=== PATIENT | female | born 1985 | race Caucasian/White ===

== ENCOUNTER 2016-04-10 07:39 | Inpatient (IN) | payer OTHER ==
[2016-04-10] MEDS ORDERED: XYLOCAINE 2% INFILTRATI ONE (08:40)
[2016-04-10] MEDS ORDERED: ZOFRAN IV PRN ×2 (08:40→18:21)
[2016-04-10] MEDS ORDERED: MINERAL OIL PO PRN (08:40)
[2016-04-10] MEDS ORDERED: ePHEDrine SULFATE IV PRN ×2 (08:40→14:29)
[2016-04-10] MEDS ORDERED: SUBLIMAZE IV PRN (08:40)
[2016-04-10] MEDS ORDERED: NARCAN 0.4 MG/1 ML IV PRN (08:40)
[2016-04-10] MEDS ORDERED: BRETHINE IVP PRN (08:40)
[2016-04-10] MEDS ORDERED: STADOL IV PRN (08:40)
[2016-04-10] MEDS ORDERED: BRETHINE SUB-Q PRN (08:40)
[2016-04-10] MEDS ORDERED: PITOCin/NS 30 UNIT/500ML 500 ML IV SCH (09:00)
[2016-04-10] MEDS ORDERED: PITOCin/NS 20 UNIT/1000ML DRIP 1,000 ML IV SCH ×2 (09:00→18:21)
--- NOTE | 2016-04-10 09:04 | History and Physical Report ---
History of Present Illness Date of examination: 04/10/16 Date of admission: 04/10/16 07:42 Chief complaint: Spontaneous rupture of membranes Past History Past Medical History: no pertinent history Past Surgical History: no surgical history Family/Genetic History: none Social history: no significant social history - Obstetrical History Expected Date of Delivery: 04/23/16 Actual Gestation: 38 Week(s) 1 Day(s) : 4 Number of Living Children: 3 Medications and Allergies Allergies Allergy/AdvReac Type Severity Reaction Status Date / Time No Known Allergies Allergy Verified 01/29/15 10:52 Home Medications Medication Instructions Recorded Confirmed Last Taken Type HYDROcodone/APAP 5-325 [[place] 1 each PO Q6HR PRN #20 tablet 01/30/15 04/10/16 Unknown Rx 5/325] Ibuprofen [Motrin] 800 mg PO Q8HR PRN #60 tablet 01/30/15 04/10/16 Unknown Rx Tablet 1 tab PO DAILY 04/10/16 04/10/16 04/09/16 21:00 History 1 Active Meds: Active Medications Butorphanol Tartrate (Stadol) 2 mg IV Q2H PRN PRN Reason: Pain , Severe (7-10) Ephedrine Sulfate (Ephedrine Sulfate) 10 mg IV Q2M PRN PRN Reason: Hypotension Stop: 04/10/16 08:45 Fentanyl (Sublimaze) 100 mcg IV Q2H PRN PRN Reason: Labor Pain Lactated Ringer's (Lactated Ringers) 1,000 mls @ 125 mls/hr IV DIRECT LEDY Oxytocin/Sodium Chloride (Pitocin/Ns 20 Unit/1000ml Drip) 1,000 mls @ 125 mls/ hr IV DIRECT LEDY Oxytocin/Sodium Chloride (Pitocin/Ns 30 Unit/500ml) 500 mls @ 4 mls/hr IV TITR LEDY PRN Reason: Protocol Oxytocin/Sodium Chloride (Pitocin/Ns 30 Unit/500ml) 500 mls @ 1 mls/hr IV TITR LEDY; 1 MILLIUNITS/MIN PRN Reason: Protocol Lidocaine (Xylocaine 2%) 20 ml INFILTRATI ONCE ONE Stop: 04/10/16 08:41 Mineral Oil (Mineral Oil) 30 ml PO QHS PRN PRN Reason: Constipation Naloxone HCl (Narcan 0.4 Mg/1 Ml) 0.1 mg IV Q2MIN PRN PRN Reason: Res Rate </= 8 or 02 SAT < 92% Ondansetron HCl (Zofran) 4 mg IV Q8H PRN PRN Reason: Nausea And Vomiting Terbutaline Sulfate (Brethine) 0.25 mg SUB-Q ONCE PRN PRN Reason: Hyperstimulation/Hypertonicity Stop: 04/10/16 08:41 Terbutaline Sulfate (Brethine) 0.25 mg IVP ONCE PRN PRN Reason: Hyperstimulation/Hypertonicity Stop: 04/10/16 08:41 Review of Systems All systems: negative Gastrointestinal: abdominal pain Genitourinary: leakage of fluid - Vital Signs Vital signs: Vital Signs Pulse Pulse Ox 87 98 04/10/16 08:47 04/10/16 08:47 Temp Pulse Resp BP Pulse Ox 97.5 F L 94 H 18 101/67 97 04/10/16 08:48 04/10/16 08:57 04/10/16 08:48 04/10/16 08:48 04/10/16 08:57 - Physical Exam Breasts: Cardiovascular: Regular rate, Normal S1, Normal S2 Abdomen: Positive: normal appearance, soft, normal bowel sounds. Negative: distention, tenderness Vulva: both: normal Vagina: Positive: normal moisture. Negative: discharge Cervix: Negative: lesion, discharge Uterus: Positive: normal size, normal contour Adnexa: both: normal Anus/Rectum: Positive: normal perianal skin, heme negative. Negative: rectal mass, hemorrhoids Extremities: Deep Tendon Reflex Grade: Normal +2 - Obstetrical FHR: category 1 Uterine Contraction Monitor Mode: External Cervical Dilatation: 3 Cervical Effacement Percentage: 50 station: -2 Uterine Contraction Frequency (min): q 8min Uterine Contraction Pattern: Irregular Uterine Tone Measurement Phase: Resting Uterine Contraction Intensity: Mild Results Result Diagrams: 04/10/16 07:05 All other labs normal. Assessment and Plan iup at term, SROM, latent labor Plan- IUPC placed. start pitocin, anticipate
[2016-04-10 09:17] LABS: Hematocrit 35.2 % (30.3-42.9); Hemoglobin 11.7 gm/dl (10.1-14.3); Mean Corpuscular HGB Conc 33 % (30-34); Mean Corpuscular Hemoglobin 27 pg (28-32); Mean Corpuscular Volume 80 fl (79-97); Platelet Count 216 K/mm3 (140-440); Red Cell Distribution Width 13.6 % (13.2-15.2); White Blood Count 10.5 K/mm3 (4.5-11.0)
[2016-04-10] MEDS: LACTATED RINGERS 1,000 ML IV SCH ×2 (11:12→14:11)
[2016-04-10] MEDS: PITOCin/NS 30 UNIT/500ML 500 ML IV SCH ×6 (11:16→14:33)
[2016-04-10] MEDS ORDERED: NARCAN 2 MG/2 ML IV PRN (14:29)
--- NOTE | 2016-04-10 14:29 | Anesthesia Consultation ---
Anesthesia Consult and Med Hx Date of service: 04/10/16 - Airway Anesthetic Teeth Evaluation: Good ROM Head & Neck: Adequate Mental/Hyoid Distance: Adequate Mallampati Class: Class II Intubation Access Assessment: Probably Good - Pulmonary Exam CTA: Yes - Cardiac Exam Cardiac Exam: RRR - Pre-Operative Health Status ASA Pre-Surgery Classification: ASA2 Proposed Anesthetic Plan: Epidural - Pulmonary Hx Asthma: No COPD: No Hx Pneumonia: No - Cardiovascular System Hx Hypertension: No - Central Nervous System Hx Seizures: No Hx Psychiatric Problems: No - Endocrine Hx Renal Disease: No Hx End Stage Renal Disease: No Hx Hypothyroidism: No Hx Hyperthyroidism: No - Hematic Hx Anemia: No Hx Sickle Cell Disease: No - Other Systems Hx Alcohol Use: No
[2016-04-10] MEDS ORDERED: fentaNYL-BUPIV 2 MCG/ML-0.125% 100 ML EPIDURAL SCH (15:00)
--- NOTE | 2016-04-10 15:57 | Procedure Note ---
OB Delivery Note - Delivery Date of Delivery: 04/10/16 Surgeon: MARQUEZ HUFF Estimated blood loss: 200cc - Vaginal Delivery presentation: vertex Delivery position: OA Intrapartum events: none Delivery induction: none Delivery augmentation: pitocin Delivery monitor: none Route of delivery: Delivery placenta: spontaneous Delivery cord: 3 umbilical vessels Episiotomy: none Delivery laceration: none Anesthesia: epidural - A at 1 minute: 9 at 5 minutes: 9 Infant Gender: Male (wt 7-13, a)
[2016-04-10] MEDS ORDERED: MILK OF MAGNESIA PO PRN (18:21)
[2016-04-10] MEDS ORDERED: BENADRYL PO PRN (18:21)
[2016-04-10] MEDS ORDERED: TYLENOL PO PRN (18:21)
[2016-04-10] MEDS ORDERED: LANSINOH TP PRN (18:21)
[2016-04-10] MEDS ORDERED: PERCOCET 5/325 PO PRN (18:21)
[2016-04-10] MEDS ORDERED: DERMOPLAST TP PRN (18:21)
[2016-04-10] MEDS ORDERED: SODIUM CHLORIDE FLUSH SYRINGE 10 ML IV NR (18:21)
[2016-04-10] MEDS ORDERED: PHENERGAN PO PRN (18:21)
[2016-04-10] MEDS ORDERED: DULCOLAX PR PRN (18:21)
[2016-04-10] MEDS ORDERED: PHENERGAN PR PRN (18:21)
[2016-04-10] MEDS ORDERED: TUCKS PAD TP PRN (18:21)
[2016-04-10] MEDS: MOTRIN PO SCH (23:25)
--- NOTE | 2016-04-11 03:05 | Progress Note ---
Assessment and Plan ppd 1 s/p . paln d/c home this pm if stable Subjective - Subjective Date of service: 04/11/16 Principal diagnosis: ppd 1 s/p Interval history: routine pp care Patient reports: appetite normal, voiding normally, pain well controlled : doing well Objective - Vital Signs Latest vital signs: Vital Signs Temp Pulse Pulse Resp BP BP Pulse Ox 04/11/16 00:40 98.2 F 84 18 85/50 04/10/16 20:30 98.8 F 83 18 90/51 04/10/16 18:12 98.8 F 68 20 94/51 04/10/16 17:01 75 104/52 04/10/16 16:46 82 98/56 04/10/16 16:32 78 79 18 104/56 104/56 97 04/10/16 16:29 79 97 04/10/16 16:24 79 97 04/10/16 16:19 74 97 04/10/16 16:16 71 101/59 04/10/16 16:15 71 18 101/59 97 04/10/16 16:14 77 98 04/10/16 16:09 76 97 04/10/16 16:04 75 97 04/10/16 15:59 71 97 04/10/16 15:54 78 97 04/10/16 15:49 80 97 04/10/16 15:46 76 100/59 04/10/16 15:44 75 98 04/10/16 15:40 97.8 F 71 73 18 105/61 105/61 98 04/10/16 15:39 78 98 04/10/16 15:18 93 H 111/67 04/10/16 15:17 90 98 04/10/16 15:12 88 96 04/10/16 15:07 94 H 97 04/10/16 15:06 88 93 04/10/16 15:02 80 99 04/10/16 14:58 75 104/53 04/10/16 14:57 77 97 04/10/16 14:52 89 91/55 97 04/10/16 14:47 81 98 04/10/16 14:46 82 105/51 04/10/16 14:44 72 91/51 04/10/16 14:42 80 86/49 99 04/10/16 14:40 74 91/54 04/10/16 14:38 76 87/51 04/10/16 14:37 81 97 04/10/16 14:36 77 104/56 04/10/16 14:34 77 90/53 04/10/16 14:32 84 85/51 97 04/10/16 14:30 78 105/57 04/10/16 14:28 79 83/49 04/10/16 14:27 84 97 04/10/16 14:26 78 83/48 04/10/16 14:22 87 111/58 98 04/10/16 14:20 86 94/54 04/10/16 14:17 100 H 101/54 99 04/10/16 14:16 98.5 F 88 18 101/54 99 04/10/16 14:12 78 98 04/10/16 14:07 94 H 97 04/10/16 14:02 94 H 97 04/10/16 13:57 80 98 04/10/16 13:52 90 97 04/10/16 13:47 82 96 04/10/16 13:44 78 94 04/10/16 13:42 102 H 96 04/10/16 13:37 82 95 04/10/16 13:36 78 94 04/10/16 13:35 77 121/58 04/10/16 13:32 95 H 98 04/10/16 13:31 18 04/10/16 13:27 89 98 04/10/16 13:22 80 98 04/10/16 13:17 93 H 98 04/10/16 13:12 92 H 98 04/10/16 13:07 91 H 96 04/10/16 13:03 89 118/56 04/10/16 13:02 91 H 98 04/10/16 12:57 89 98 04/10/16 12:52 91 H 98 04/10/16 12:47 98 H 97 04/10/16 12:42 89 97 04/10/16 12:37 89 96 04/10/16 12:32 85 97 04/10/16 12:27 98.5 F 88 82 18 103/71 98 04/10/16 12:26 93 H 103/71 04/10/16 12:22 93 H 98 04/10/16 12:17 91 H 96 04/10/16 12:12 100 H 98 04/10/16 12:07 96 H 98 04/10/16 12:04 89 94 04/10/16 12:02 95 H 97 04/10/16 11:57 101 H 98 04/10/16 11:52 105 H 98 04/10/16 11:49 98 H 109/71 04/10/16 11:47 92 H 98 04/10/16 11:42 95 H 98 04/10/16 11:37 97 H 97 04/10/16 11:32 98 H 98 04/10/16 11:27 95 H 97 04/10/16 11:22 99 H 97 04/10/16 11:18 93 H 100/59 04/10/16 11:17 88 99 04/10/16 09:57 90 96 04/10/16 09:52 88 96 04/10/16 09:47 90 96 04/10/16 09:42 97 H 96 04/10/16 09:37 86 96 04/10/16 09:32 83 96 04/10/16 09:27 84 98 04/10/16 09:22 89 97 04/10/16 09:17 83 98 04/10/16 09:12 83 97 04/10/16 09:07 85 97 04/10/16 09:02 87 98 04/10/16 08:57 94 H 97 04/10/16 08:52 89 98 04/10/16 08:48 97.5 F L 86 88 18 101/67 101/67 98 04/10/16 08:47 87 98 Intake and Output 04/10/16 04/10/16 04/11/16 14:59 22:59 06:59 Intake Total 1000 2070 720 Output Total 850 350 Balance 1000 1220 370 Intake: IV 1000 1950 600 Lactated Ringers 1,000 ml 1000 1050 @ 125 mls/hr IV DIRECT LEDY Rx#:[id number] PITOCin/NS 20 UNIT/1000ML 400 600 DRIP 1,000 ML @ 125 mls/ hr IV DIRECT LEDY Rx#: [id number] PITOCin/NS 30 UNIT/500ML 500 500 ML @ 1 MILLIUNITS/MIN 1 mls/hr IV TITR LEDY Rx# :[id number] Oral 120 120 Output: Urine 850 350 Indwelling Catheter 700 Void 150 350 Other: Total, Intake Amount 120 120 Total, Output Amount 150 350 Weight 74.389 kg Estimated Blood Loss 200 Patient Weight 04/11/16 06:59 Weight 74.389 kg - Exam Breasts: Present: deferred Cardiovascular: Present: Regular rate, Normal S1, Normal S2 Lungs: Present: Clear to auscultation Abdomen: Present: normal appearance, soft Vulva: both: normal Uterus: Present: normal, firm Extremities: Present: normal Deep Tendon Reflex Grade: Normal +2 Incision: Present: normal, dry, intact - Labs Labs: Abnormal lab results 04/10/16 Range/Units 07:05 MCH 27 L (28-32) pg
--- NOTE | 2016-04-11 03:08 | Discharge Summary ---
Providers - Providers Date of Admission: 04/10/16 07:42 Date of discharge: 04/11/16 Attending physician: MARQUEZ HUFF Primary care physician: MARQUEZ HUFF Hospitalization Reason for admission: active labor, rupture of membranes Delivery: Procedure details: s/p Episiotomy: none Laceration: none Other procedures: none complications: none Discharge diagnosis: IUP at term delivered baby: male Hospital course: rouitne pp course Condition at discharge: Good Disposition: DISCHARGED TO HOME OR SELFCARE - Discharge Diagnoses (1) (normal spontaneous vaginal delivery) Status: Acute Plan - Discharge Medications Prescriptions: Ferrous Sulfate [Feosol 325 MG tab] 325 mg PO BID #60 tablet Ibuprofen [Motrin 800 MG tab] 800 mg PO Q8HR PRN #30 tablet PRN Reason: Pain oxyCODONE /ACETAMINOPHEN [Percocet 5/325] 1 tab PO Q6HR PRN #30 tablet PRN Reason: Pain - Provider Discharge Summary Activity: routine, no sex for 6 weeks, no heavy lifting 4 weeks, no strenuous exercise Diet: routine Additional instructions: [] Smoking cessation referral if applicable(refer to patient education folder for contact #) [] Refer to [facility]'s [facility] Booklet Call your doctor immediately for: * Fever > 100.5 * Heavy vaginal bleeding ( >1 pad per hour) * Severe persistent headache * Shortness of breath * Reddened, hot, painful area to leg or breast * Drainage or odor from incision. * Keep incision clean and dry at all times and follow doctor's instructions regarding bathing/showering - Follow up plan Follow up: MARQUEZ HUFF MD [Primary Care Provider] - 6 Weeks
[2016-04-11] MEDS: MOTRIN PO SCH ×2 (05:03→12:40)
[2016-04-11] MEDS ORDERED: BOOSTRIX IM ONE (06:00)
[2016-04-11 06:45] LABS: Hematocrit 29.5 % (30.3-42.9); Hemoglobin 9.7 gm/dl (10.1-14.3)
--- NOTE | 2016-04-11 11:52 | Progress Note ---
Subjective Date of service: 04/11/16 Principal diagnosis: ppd 1 s/p Interval history: 1st day after normal vaginal delivery Patient is in the bed, relatively comfortable. Pain is well controlled with pain meds. Ambulated well. No residual neurological deficit. No anesthesia complications Objective - Constitutional Vitals: Vital Signs - 12hr 04/11/16 04/11/16 00:40 08:37 Temperature 98.2 F 99.2 F Pulse Rate [ 84 74 From Monitor] Respiratory 18 18 Rate Blood Pressure 85/50 92/53 [Right Arm] - Labs CBC & Chem 7: 04/11/16 05:28 Labs: Abnormal lab results 04/11/16 Range/Units 05:28 Hgb 9.7 L (10.1-14.3) gm/dl Hct 29.5 L (30.3-42.9) %
[2016-04-11] MEDS ORDERED: FLUARIX QUAD 2016-2017(36 MOS+) IM ONE (12:00)
[2016-04-11 16:14] VITALS: BP 98/58
== END 2016-04-11 17:15 | disposition home or self-care (01) | DRG 775 ==
LOC: TRG 07:39 → LD 07:42 → OB 17:58
PROVIDERS: ADMIT Specialist; ATTEND Specialist
PROC: 10E0XZZ Delivery of Products of Conception, External Approach (ICD-10-PCS; principal; 2016-04-10)
PROC: 00HU33Z Insertion of Infusion Device into Spinal Canal, Percutaneous Approach (ICD-10-PCS; 2016-04-10)
PROC: 3E0R3CZ (ICD-10-PCS; 2016-04-10)
DX: O80 Encounter for full-term uncomplicated delivery (principal); Z3A.38 38 weeks gestation of pregnancy
CPT/HCPCS: 36415; 85014; 85018; 85027; 86850; 86900; 86901; 90471; 90686; 90715; 99211; G0008; G0463; J2590; J3010; J7120